=== PATIENT | male | born 1955 | race Caucasian/White ===

== ENCOUNTER 2016-07-28 15:27 | Inpatient (IN) | payer OTHER ==
--- NOTE | 2016-07-28 16:02 | EDPHY ---
H & P Time Seen by Provider: 07/28/16 15:52 HPI/ROS: Chief complaint. Chest pain, shortness of breath HPI. 61-year-old male chest pain shortness of breath for 1 week. Gradually worsening. No fall or injury. It is right-sided and worse with deep breathing. He has developed slight cough and slight fever. Symptoms are typical of his previous pneumothoraces. He has had multiple spontaneous pneumothorax with procedures for repair x2. No left-sided symptoms. ROS Constitutional. Low-grade fever Eyes. no problems with vision ENT. no sore throat, no nasal drainage Cardiovascular. Right-sided chest pain Respiratory. Shortness of breath Abdominal. no abdominal pain, no nausea/vomiting, no diarrhea . no problems urinating MS. no calf pain/swelling, no neck/back pain, no joint pain Skin. no rash Lymph. no swollen glands Neuro. no headache, no dizziness, no difficulty walking or with speech Past Medical/Surgical History: Pneumothorax Social History: Single, nonsmoker, no alcohol Smoking Status: Never smoked Physical Exam: General Appearance: Alert well-developed male mild distress vital signs show heart rate of 101. O2 saturation 94% on Eyes: Pupils equal and round no pallor or injection. ENT, Mouth: Mucous membranes are moist. Respiratory: Decreased breath sounds on the right Cardiovascular: Regular rate and rhythm. Gastrointestinal: Abdomen is soft and nontender, no masses, bowel sounds normal. Neurological: Awake and alert, sensory and motor exams grossly normal. Skin: Warm and dry, no rashes. Musculoskeletal: Neck is supple nontender. Extremities symmetrical, full range of motion. Psychiatric: Patient is oriented X 3, there is no agitation. Constitutional: Initial Vital Signs Temperature (C) 36.7 C 07/28/16 15:38 Heart Rate 101 H 07/28/16 15:38 Respiratory Rate 20 07/28/16 15:38 Blood Pressure 138/88 H 07/28/16 15:38 O2 Sat (%) 94 07/28/16 15:38 O2 Delivery Mode Room Air Allergies/Adverse Reactions: codeine [Codeine] Allergy (Intermediate, Verified 07/28/16 15:37) Abdominal Cramping amoxicillin [Amoxicillin] Allergy (Mild, Verified 07/28/16 15:37) Rash Home Medications: Medication Instructions Recorded NK [No Known Home Meds] 07/28/16 Medical Decision Making - Diagnostics EKG Interpretation: EKG interpreted by me shows normal sinus rhythm with normal interval and axis. QRS is normal there is no significant ST elevation or depression. The rate is 90. No change from previous EKG August 2010 Imaging: Chest x-ray from this morning is reviewed by me and shows a moderate to large right-sided pneumothorax Chest CT confirms the pneumothorax but also shows 2 new pulmonary nodules in the left lung ED Course/Re-evaluation: I have consulted and discussed case with Dr. Hayes who comes to see the patient in the emergency department. On re-evaluation patient remained stable. The patient and I discussed treatment plan including need for admission further evaluation. Plan is surgery. The patient expresses understanding and agreement Differential Diagnosis: Recurrent pneumothorax and new pulmonary nodules in the other lung. This could certainly be suspicious for metastatic cancer as the patient has been worked up for prostate cancer previously - Data Points Laboratory Results: Laboratory Results 07/28/16 15:50 07/28/16 15:50 07/28/16 07/28/16 07/28/16 15:50 15:50 15:50 WBC 6.69 10^3/uL 10^3/uL (3.80-9.50) RBC 5.15 10^6/uL 10^6/uL (4.40-6.38) Hgb 16.5 g/dL g/dL (13.7-17.5) Hct 49.0 % % (40.0-51.0) MCV 95.1 fL fL (81.5-99.8) MCH 32.0 pg pg (27.9-34.1) MCHC 33.7 g/dL g/dL (32.4-36.7) RDW 13.5 % % (11.5-15.2) Plt Count 305 10^3/uL 10^3/uL (150-400) MPV 9.7 fL fL (8.7-11.7) Neut % (Auto) 71.4 % % (39.3-74.2) Lymph % (Auto) 19.3 % % (15.0-45.0) Stanley % (Auto) 8.8 % % (4.5-13.0) Eos % (Auto) 0.0 % L % (0.6-7.6) Baso % (Auto) 0.4 % % (0.3-1.7) Nucleat RBC Rel Count 0.0 % % (0.0-0.2) Absolute Neuts (auto) 4.77 10^3/uL 10^3/uL (1.70-6.50) Absolute Lymphs (auto) 1.29 10^3/uL 10^3/uL (1.00-3.00) Absolute Monos (auto) 0.59 10^3/uL 10^3/uL (0.30-0.80) Absolute Eos (auto) 0.00 10^3/uL L 10^3/uL (0.03-0.40) Absolute Basos (auto) 0.03 10^3/uL 10^3/uL (0.02-0.10) Absolute Nucleated RBC 0.00 10^3/uL 10^3/uL (0-0.01) Immature Gran % 0.1 % % (0.0-1.1) Immature Gran # 0.01 10^3/uL 10^3/uL (0.00-0.10) Sodium 140 mEq/L mEq/L (134-144) Potassium 4.1 mEq/L mEq/L (3.5-5.2) Chloride 102 mEq/L mEq/L (97-110) Carbon Dioxide 27 mEq/l mEq/l (22-31) Anion Gap 11 mEq/L mEq/L (8-16) BUN 15 mg/dL mg/dL (7-23) Creatinine 0.9 mg/dL mg/dL (0.7-1.3) Estimated GFR > 60 Glucose 108 mg/dL H mg/dL (70-100) Calcium 10.0 mg/dL mg/dL (8.5-10.4) Total Bilirubin 0.6 mg/dL mg/dL (0.1-1.4) AST 29 IU/L IU/L (17-59) ALT 45 IU/L IU/L (21-72) Alkaline Phosphatase 76 IU/L IU/L (38-126) Total Protein 8.0 g/dL g/dL (6.3-8.2) Albumin 4.9 g/dL g/dL (3.5-5.0) Free PSA Pending Total PSA Pending Departure - Departure Disposition: [facility] Inpatient Acute Clinical Impression: Pneumothorax Qualifiers: Pneumothorax type: spontaneous, primary Qualified Code(s): J93.11 - Primary spontaneous pneumothorax Condition: Fair
--- NOTE | 2016-07-28 16:03 | CPEKG ---
Heart Rate: 90 RR Interval: 667 P-R Interval: 168 QRSD Interval: 78 QT Interval: 352 QTC Interval: 431 P Grandy: 92 QRS Grandy: 70 T Wave Grandy: 77 EKG Severity - NORMAL ECG - EKG Impression: SINUS RHYTHM Electronically Signed By: Mani Lr 29-Jul-2016 00:01:50
--- NOTE | 2016-07-28 18:36 | PDCONSULT ---
Mfts Note: 61 y/o male with 6-7 day history of malaise, fatigue and subsequent right chest pain, cough He is s/p VATS 2010 for apical blebectomy/mechanical pleurodesis for recurrent pneumothorax and now has a 60% right basilar pneumothorax. PMH: prostatectomy 2012 prostate CA VATS pleurodesis 2010 recurrent pneumo non-smoker/no exposure SH: lives alone/sister in [place] ROS: no hemoptysis/trauma PE: thin gentleman in NAD trachea midline/no adenopathy lungs: diminished breath sounds right abd: soft/+BS, non-tender, no mass or HSM CT: reviewed with Dr. Marshall: LLL/ALEJANDRO pulmonary nodules, new since 2010 right pneumothorax without obvious mass, bleb or pleural thickening lab pending Imp: 1. recurrent right pneumothorax 2. LLL/ALEJANDRO pulmonary nodules, new 3. Hx prostate CA 2011 Rec: We discussed options and I recommended a repeat VATS pleurodesis/talc and subsequent non-invasive work up for his pulmonary nodules He is in agreement and I will schedule the surgery for this evening. Kam Hayes MD, FACS
[2016-07-28 18:50] LABS: % IMMATURE GRANULYOCYTES 0.1 % (0.0-1.1); ABSOLUTE IMMATURE GRANULOCYTES 0.01 10^3/uL (0.00-0.10); ADD DIFF? NO; ADD MORPH? NO; ADD SCAN? NO; ATYPICAL LYMPHOCYTE FLAG 0 (0-99); FRAGMENT RBC FLAG 0 (0-99); HEMOGLOBIN 16.5 g/dL (13.7-17.5); LEFT SHIFT FLG 0 (0-99); LIPEMIA HEMOLYSIS FLAG 80 (0-99); MEAN CELL HEMOGLOBIN CONCENTR. 33.7 g/dL (32.4-36.7); MEAN CELL VOLUME 95.1 fL (81.5-99.8); MEAN PLATELET VOLUME 9.7 fL (8.7-11.7); PLATELET CLUMPS FLAG 20 (0-99); PLATELET COUNT 305 10^3/uL (150-400); RED BLOOD CELL COUNT 5.15 10^6/uL (4.40-6.38); RED CELL DISTRIBUTION WIDTH 13.5 % (11.5-15.2)
[2016-07-28 18:52] LABS: ALANINE AMINOTRANSFERASE 45 IU/L (21-72); ALBUMIN 4.9 g/dL (3.5-5.0); ALKALINE PHOSPHATASE 76 IU/L (38-126); ANION GAP 11 mEq/L (8-16); ASPARTATE AMINOTRANSFERASE 29 IU/L (17-59); BILIRUBIN,TOTAL 0.6 mg/dL (0.1-1.4); CARBON DIOXIDE 27 mEq/l (22-31); CHLORIDE 102 mEq/L (97-110); CREATININE 0.9 mg/dL (0.7-1.3); GLOMERULAR FILTRATION RATE > 60; GLUCOSE 108 mg/dL (70-100); POTASSIUM 4.1 mEq/L (3.5-5.2); SODIUM 140 mEq/L (134-144)
[2016-07-28] MEDS ORDERED: ROCURONIUM 50 MG/5 ML VIAL ONE (21:27)
[2016-07-28] MEDS ORDERED: PROPOFOL 200 MG/20 ML VIAL ONE (21:27)
[2016-07-28] MEDS ORDERED: HYDROmorphONE/DILAUDID 2 MG/ML INJ ONE (21:27)
[2016-07-28] MEDS ORDERED: LIDOCAINE 2% 5 ML SDV ONE (21:29)
[2016-07-28] MEDS ORDERED: epHEDrine SULFATE 10 MG/ML SYR ONE (22:00)
[2016-07-28] MEDS ORDERED: PHENYLEPHRINE HCL 100 MCG/ML SYR ONE (22:00)
[2016-07-28] MEDS ORDERED: DEXAMETHASONE 4 MG/ML VIAL ONE ×2 (22:01)
[2016-07-28] MEDS ORDERED: ceFAZolin 1 GM VIAL ONE ×2 (22:01)
[2016-07-28] MEDS ORDERED: ONDANSETRON 4 MG/2 ML VIAL ONE (22:01)
[2016-07-28] MEDS ORDERED: BUPIVACAINE/EPI 0.25% 30 ML SDV ONE (22:06)
[2016-07-28] MEDS ORDERED: VASOPRESSIN 20 UNIT/ML VIAL ONE (22:29)
[2016-07-28] MEDS ORDERED: HYDROmorphONE/DILAUDID 1 MG/ML SYR ONE (23:19)
[2016-07-28] MEDS ORDERED: ONDANSETRON 4 MG/2 ML VIAL IVP PRN (23:21)
[2016-07-28] MEDS ORDERED: fentaNYL 100 MCG/2 ML INJ ONE (23:24)
[2016-07-28] MEDS ORDERED: KETOROLAC 30 MG/1 ML SDV IVP ONE (23:27)
[2016-07-28] MEDS ORDERED: HYDROmorphONE/DILAUDID 1 MG/ML SYR IVP PRN (23:28)
[2016-07-28] MEDS ORDERED: NS 1,000 ML IV SCH (23:30)
--- NOTE | 2016-07-28 23:33 | POSTOPPROG ---
Post Op Note Date of Operation: 07/28/16 Surgeon: Jaylen Hayes (, FACS) Anesthesiologist: Victor Manuel Barlow DO Anesthesia: GET(General Endotracheal) Pre-op Diagnosis: recurrent right pneumothorax Post-op Diagnosis: same Procedure: VATS talc pleurodesis/biopsy parietal pleura and RLL lung Inf/Abcess present in the surg proc area at time of surgery?: No Drains: Other (#[address]) Specimen(s): parietal pleura/subpleural nodule RLL anterobasilar segment
[2016-07-28] MEDS ORDERED: KETOROLAC 30 MG/1 ML SDV ONE (23:38)
[2016-07-29] MEDS: OXYCODONE/APAP 5/325 TAB PO PRN ×4 (00:53→20:24)
--- NOTE | 2016-07-29 04:33 | GOP ---
[f rep st] OPERATIVE REPORT DATE OF OPERATION: SURGEON: Jaylen Hayes MD, FACS ANESTHESIA: General endotracheal, Victor Manuel Barlow DO. PREOPERATIVE DIAGNOSIS: 1. Recurrent right pneumothorax. 2. History of prostate cancer. 3. New left pulmonary nodules. POSTOPERATIVE DIAGNOSIS: 1. Recurrent right pneumothorax. 2. History of prostate cancer. 3. New left pulmonary nodules. PROCEDURE PERFORMED: 1. Right thoracoscopic talc pleurodesis (VATS). 2. Thoracoscopic pleural biopsy. 3. Thoracoscopic wedge biopsy, right lower lobe. FINDINGS: A 60% to 70% pneumothorax with tethering of the apex from prior mechanical pleurodesis. No evidence of tension at time of surgery. A small, inflammatory-appearing, pleural nodule from the right posterior chest, excised and submitted for permanent section. A small, subpleural, pulmonary nodule, excised from the anterior basilar segment of the right lower lobe and submitted for permanent section. No gross evidence of malignancy. ESTIMATED BLOOD LOSS: 10 mL. INDICATIONS: Patient is a 61-year-old male, who presented with a several-day history of worsening shortness of breath and chest pain, and was found to have a recurrent pneumothorax on chest x-ray in the emergency department by Dr. Lr. Surgical consultation was requested. CT scan was performed, which in addition to confirming the anatomic nature of the pneumothorax, revealed a spiculated pulmonary nodule in the left lower lobe medial basilar segment, as well as an upper lobe smaller pulmonary nodule, not present on prior CT from 2010. The patient had subsequently been treated for prostate cancer, and last year had been noted to have a rising PSA, with a bone scan that showed some equivocal findings in the axial skeleton. Patient and I discussed the options of management including primary chest tube placement versus proceeding with definitive VATS with talc pleurodesis, and ultimately he decided to proceed with the definitive procedure. DESCRIPTION OF PROCEDURE: After informed consent was obtained, the patient was brought to the operating room and placed under general anesthesia via double- lumen endotracheal tube. The patient was then carefully positioned in left lateral decubitus. The right chest was prepped and draped in the usual fashion. Before proceeding, a time-out and identification of the patient was performed. He received 2 g of Ancef as surgical prophylaxis. The chest was entered in the 6th intercostal space along the anterior axillary line, after infiltrating the skin, subcutaneous tissues, and intercostal muscle with 0.25% Marcaine with epinephrine. A 5 mm port was established and a 30- degree scope was introduced. The pleural space was visualized. The patient had mostly collapsed his lower lobe and middle lobe, but his upper lobe remained tethered from the prior mechanical pleurodesis. Some grayish-brown nodular material was found to be implanted in the parietal pleura posteriorly, and he had anthracosis of the pleura, but no particularly worrisome nodules. There was a small subpleural nodule along the anterior basilar segment of the lower lobe. Before proceeding with the talc pleurodesis, the lung was inflated to ensure that there was no entrapment or bronchial obstruction. Dr. Barlow was unable to inflate the lung with positive pressure ventilation, but it inflated nicely with suction on the chest cavity. Two additional ports were placed, 1 in the 8th intercostal space along the anterior axillary line, and then 1 in the 7th intercostal space along the posterior axillary line. This allowed introduction of atraumatic instruments, and the pleura was tented, and a small disc of pleura along with the nodular area were excised, and submitted in formalin for permanent section. The subpleural nodule in the anterior basilar segment of the lower lobe was gently lifted with an atraumatic grasper, and a single firing of the LIBAN 35 stapler, white cartridge, was applied across the base, and this was retrieved and submitted for permanent section. Subsequently , 2 canisters of aerosolized talc were introduced into the pleural space through 1 of the ports, and the entire visceral and parietal pleural surfaces were covered. Total of 54 g of talc was delivered. The 24-Prydeinig chest tube was placed through the anterior port site, which had been enlarged slightly to accommodate the stapler. This was secured to the skin with 0 silk suture, and was positioned along the posterior aspect of the chest cavity, directed apically. The lung was reinflated with suction, and positive pressure ventilation was reinstituted. The remaining 2 incisions were closed with 4-0 Monocryl suture. Sterile dressings were applied. Chest tube was secured to a Pleur-evac and placed on suction, at which point, additional air was evacuated through the Pleur-evac and ultimately, no persistent air leak continued after the lung was fully inflated. The patient was returned to the supine position, extubated, and brought to the recovery room in satisfactory condition. Needle sponge, and instrument counts were correct. COMPLICATIONS: None. /[id number]/MODL MTDD
--- NOTE | 2016-07-29 06:39 | SOAPPROG ---
Downtime Inpatient MD Late Entry SOAP Note: Zoin is resting comfortably with moderate discomfort from his chest tube. He is mildly nauseated. His CT output is minimal and there is no air leak on 10cm suction. Lungs are clear to auscultation PSA and morning CXR are pending Imp: stable post op' Rec: continue CT drainage today/consider CT removal tomorrow if lung remains inflated check PSA supportive care Kam Hayes MD, FACS
[2016-07-29] MEDS: ENOXAPARIN 40 MG/0.4 ML SYR SC SCH (08:15)
[2016-07-29] MEDS: KETOROLAC 15 MG/1 ML SDV IVP PRN (20:24)
[2016-07-30] MEDS: OXYCODONE/APAP 5/325 TAB PO PRN ×4 (06:08→21:11)
[2016-07-30] MEDS: KETOROLAC 15 MG/1 ML SDV IVP PRN ×2 (06:10→21:07)
--- NOTE | 2016-07-30 07:45 | SOAPPROG ---
SOAP Progress Note Assessment/Plan: Assessment:s/p right VATS talc pleurodesis for recurrent pneumothorax prostate CA-PSA remains pending left pulmonary nodules Plan: CXR-possible CT removal today check PSA Oncology consult at some point 07/30/16 07:43 Subjective: resting comfortably with Percocet/IV Dilaudid Objective: Vital Signs Temp Pulse Resp BP Pulse Ox 36.4 C 76 18 116/67 91 L 07/29/16 22:30 07/29/16 22:30 07/29/16 22:30 07/29/16 22:30 07/29/16 22:30 07/29/16 07/30/16 07/31/16 05:59 05:59 05:59 Intake Total 1050 2600 Output Total 769 650 10 Balance 281 1950 -10 - Pending Discharge Pending Discharge Within 24 Hours: Yes Pending Discharge Date: 07/31/16 Pending Discharge Time: 11:00 Physical Exam - Physical Exam General Appearance: no apparent distress Respiratory: decreased breath sounds, other (CT without air leak) Cardiac/Chest: regular rate, rhythm ICD10 Worksheet Patient Problems: Problems Problem Status Onset Pneumothorax Acute
[2016-07-30] MEDS: ENOXAPARIN 40 MG/0.4 ML SYR SC SCH (08:24)
[2016-07-30 14:16] LABS: FREE PSA 2.3 ng/mL; PSA RATIO F/T See Comments ratio; TOTAL PSA 32.7 ng/mL (<=4.5)
--- NOTE | 2016-07-30 15:20 | SOAPPROG ---
Downtime Inpatient MD Late Entry SOAP Note: Repeat PSA [address] removed without incident We discussed the significance of the rising PSA and I recommended Oncology Consultation with Dr. Bryn Glover as an outpatient repeat CXR pending/anticipate discharge tomorrow S MD Abigail, FACS
--- NOTE | 2016-07-30 18:44 | POSTOPPROG ---
Post Op Note Date of Operation: 07/30/16 Surgeon: Jaylen Hayes (, FACS) Anesthesia: Local (Specify) Pre-op Diagnosis: recurrent right pneumothorax Post-op Diagnosis: same Procedure: right closed tube thoracostomy Inf/Abcess present in the surg proc area at time of surgery?: No EBL: Minimal Drains: Other (#28 [place]. [place])
[2016-07-31] MEDS: KETOROLAC 15 MG/1 ML SDV IVP PRN ×3 (04:17→21:07)
[2016-07-31] MEDS: OXYCODONE/APAP 5/325 TAB PO PRN ×3 (04:17→21:08)
[2016-07-31] MEDS: ENOXAPARIN 40 MG/0.4 ML SYR SC SCH (08:48)
--- NOTE | 2016-07-31 10:49 | SOAPPROG ---
SOAP Progress Note Assessment/Plan: Assessment:s/p right VATS talc pleurodesis for recurrent pneumothorax-CT replaced after recurrent pneumo yesterday prostate CA-PSA remains pending left pulmonary nodules Plan:CT to water seal today/repeat CXR consider conversion to Heimlich valve and leave CT in for 10-14 days. 07/30/16 07:43 07/31/16 10:47 Subjective: Awake and alert/denies significant pain Objective: Vital Signs Temp Pulse Resp BP Pulse Ox 36.4 C 80 14 111/85 H 91 L 07/31/16 07:50 07/31/16 07:50 07/31/16 07:50 07/31/16 07:50 07/31/16 07:50 07/30/16 07/31/16 08/01/16 05:59 05:59 05:59 Intake Total 2600 550 Output Total 650 1610 10 [facility] 1950 -1060 -10 - Pending Discharge Pending Discharge Within 48 Hours: Yes Pending Discharge Date: 08/02/16 Pending Discharge Time: 11:00 Physical Exam - Physical Exam General Appearance: no apparent distress Respiratory: lungs clear, decreased breath sounds, other (CT without air leak on suction-placed to water seal) Cardiac/Chest: regular rate, rhythm ICD10 Worksheet Patient Problems: Problems Problem Status Onset Pneumothorax Acute
[2016-07-31] MEDS ORDERED: MAGNESIUM HYDROXIDE 30 ML UDCUP PO PRN ×2 (11:18→18:23)
[2016-07-31] MEDS ORDERED: BISACODYL 10 MG SUPP PR PRN (18:23)
[2016-07-31] MEDS ORDERED: POLYETHYLENE GLYCOL 3350 17 GM PKT PO PRN (18:23)
[2016-07-31] MEDS ORDERED: LACTULOSE 20 GM/30 ML UDCUP PO PRN (18:23)
[2016-07-31] MEDS: SENNOSIDES/DOCUSATE SODIUM TAB PO SCH (21:08)
[2016-08-01] MEDS: OXYCODONE/APAP 5/325 TAB PO PRN ×3 (07:13→22:07)
[2016-08-01] MEDS: KETOROLAC 15 MG/1 ML SDV IVP PRN (07:17)
--- NOTE | 2016-08-01 08:17 | PDDCSUM ---
Discharge Summary Discharge Summary: DOA 07/28/16 DOD: 08/01 DC Diagnosis: 1. recurrent right pneumothorax 2. hx. prostate CA s/p prostatectomy 2011 3. new Left pulmonary nodules Procedures: 07/28 Right VATS pleurodesis/lung biopsy/pleural biopsy Course: Zion presented with a 60-70% right pneumothorax s/p mechanical pleurodesis in 2010. A pre-op CT scan showed two new Left lung nodules/but no identifiable blebs in the right lung. At surgery the right apex was adherent to the parietal pleura. A biopsy of an irregular area of pleura and a small RLL subpleural nodule was performed followed by talc pleurodesis. He did well post op. POD #[address] was removed after 36 hours of expansion on water seal. Unfortunately, his post removal CXR showed a recurrent pneumothorax. A #28Fr. CT was replaced and the lung re-expanded. The lung remained inflated on water seal on the day of discharge and he was converted to a Heimlich valve. CXR showed good lung expansion. He will follow up in my office tomorrow and I anticipate removing the CT in 7- 10 days. His PSA was 23. I reviewed his CT images with him so he could see the pulmonary nodules. LFT's/alk phos were normal. I discussed his case with Dr. Bryn Glover who recommended a PET-CT when he was more fully recovered. DC meds: Percocet #30 Senokot-S #30 S MD Abigail, FACS
[2016-08-01] MEDS: ENOXAPARIN 40 MG/0.4 ML SYR SC SCH (08:19)
[2016-08-01] MEDS: SENNOSIDES/DOCUSATE SODIUM TAB PO SCH ×2 (08:20→20:08)
--- NOTE | 2016-08-01 13:12 | SOAPPROG ---
Downtime Inpatient Late Entry SOAP Note: I received a call from Zion's nurse Vanessa who reported the glove used to drain the CT via the Heimlich valve has filled up with air on several occasions. I have cancelled Zion's discharge and will continue observation in the hospital/he may require a return to pleuravac suction. Kam Hayes MD, FACS
[2016-08-02] MEDS: OXYCODONE/APAP 5/325 TAB PO PRN ×5 (04:50→20:50)
--- NOTE | 2016-08-02 06:38 | SOAPPROG ---
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 [place] 07/30/16 07:43 07/31/16 10:47 08/02/16 06:34 08/02/16 06:37 Subjective: resting comfortable/intermitant air leak as evidenced by air inflation of draining glove attached to Heimlich valve Objective: Vital Signs Temp Pulse Resp BP Pulse Ox 36.4 C 93 16 129/74 H 94 08/01/16 23:45 08/01/16 23:45 08/01/16 23:45 08/01/16 23:45 08/01/16 23:45 08/01/16 08/02/16 08/03/16 05:59 05:59 05:59 Intake Total 1800 2000 Output Total 165 400 Balance 1635 1600 Physical Exam - Physical Exam General Appearance: no apparent distress Respiratory: lungs clear, decreased breath sounds, other (CT clamped and Heimlich valve removed/placed on 15 cm suction via pleuravac with brief air leak that sealed) Cardiac/Chest: regular rate, rhythm ICD10 Worksheet Patient Problems: Problems Problem Status Onset Pneumothorax Acute
[2016-08-02] MEDS: SENNOSIDES/DOCUSATE SODIUM TAB PO SCH ×2 (09:08→23:10)
[2016-08-02] MEDS: ENOXAPARIN 40 MG/0.4 ML SYR SC SCH (09:08)
[2016-08-03] MEDS: OXYCODONE/APAP 5/325 TAB PO PRN ×5 (01:47→21:00)
[2016-08-03] MEDS: ENOXAPARIN 40 MG/0.4 ML SYR SC SCH (08:47)
[2016-08-03] MEDS: SENNOSIDES/DOCUSATE SODIUM TAB PO SCH ×2 (08:48→22:51)
--- NOTE | 2016-08-03 08:51 | SOAPPROG ---
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 Plan:CT to pleuravac suction will require hospitalization additional 3-4 days/could potential return home on water seal pleuravac if appropriate home care services available-patient remains motivated to do so I spent 40 minutes with him discussing his diagnosis of metastatic prostate CA and his persistant bronchopleural fistula Kam Hayes MD, FACS 07/30/16 07:43 07/31/16 10:47 08/02/16 06:34 08/02/16 06:37 08/03/16 08:48 Subjective: resting comfortably/noticed air leak intermitantly yesterday Objective: Vital Signs Temp Pulse Resp BP Pulse Ox 36.4 C 80 18 96/71 L 95 08/03/16 07:25 08/03/16 07:25 08/03/16 07:25 08/03/16 07:25 08/03/16 07:25 08/02/16 08/03/16 08/04/16 05:59 05:59 05:59 Intake Total 2000 950 Output Total 400 20 Balance 1600 930 - Time Spent With Patient Time Spent With Patient: 40 minutes Physical Exam - Physical Exam General Appearance: alert, no apparent distress Respiratory: lungs clear, decreased breath sounds, other (small intermitant air leak noticed this morning/minimal serous drainage/CT dressing intact) ICD10 Worksheet Patient Problems: Problems Problem Status Onset Pneumothorax Acute
[2016-08-04] MEDS: OXYCODONE/APAP 5/325 TAB PO PRN ×3 (04:59→15:30)
[2016-08-04] MEDS: ENOXAPARIN 40 MG/0.4 ML SYR SC SCH (09:15)
[2016-08-04] MEDS: SENNOSIDES/DOCUSATE SODIUM TAB PO SCH ×2 (09:16→20:30)
--- NOTE | 2016-08-04 12:38 | SOAPPROG ---
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 Plan:continue CT to pleuravac suction until air leak resolved will require hospitalization additional 3-4 days/could potential return home on water seal pleuravac if appropriate home care services available-patient remains motivated to do so Kam Hayes MD, FACS 07/30/16 07:43 07/31/16 10:47 08/02/16 06:34 08/02/16 06:37 08/03/16 08:48 08/04/16 12:36 Subjective: resting comfortably/taking 4 Percocet per day for pain control Objective: Vital Signs Temp Pulse Resp BP Pulse Ox 36.6 C 88 16 98/72 L 92 08/03/16 22:25 08/04/16 08:00 08/04/16 08:00 08/04/16 08:00 08/04/16 08:00 08/03/16 08/04/16 08/05/16 05:59 05:59 05:59 Intake Total 950 550 Output Total 20 71 Balance 930 479 Physical Exam - Physical Exam General Appearance: alert, no apparent distress Respiratory: normal breath sounds, decreased breath sounds, other (CT with intermitant air leak on 10 cm suction/minimal drainage at CT exit site) Cardiac/Chest: regular rate, rhythm ICD10 Worksheet Patient Problems: Problems Problem Status Onset Pneumothorax Acute
--- NOTE | 2016-08-05 06:14 | SOAPPROG ---
Downtime Inpatient MD Late Entry SOAP Note: Zion is resting comfortably/he still has an intermitant air leak on 10 cm suction there is minimal drainage/AFVSS Lungs Clear to auscultation Imp: persistant air leak Rec: continue CT suction
[2016-08-05] MEDS: ENOXAPARIN 40 MG/0.4 ML SYR SC SCH (08:12)
[2016-08-05] MEDS: SENNOSIDES/DOCUSATE SODIUM TAB PO SCH ×2 (10:34→21:29)
[2016-08-06] MEDS: ENOXAPARIN 40 MG/0.4 ML SYR SC SCH (09:11)
[2016-08-06] MEDS: SENNOSIDES/DOCUSATE SODIUM TAB PO SCH ×2 (09:11→20:18)
--- NOTE | 2016-08-06 18:17 | SOAPPROG ---
Downtime Inpatient MD Late Entry SOAP Note: Zion is resting comfortably/his chest tube continues to have an intermitant air leak on 10 cm suction lungs are clear/CT dressing intact We discussed a trial of H2O seal and possible discharge with pleuravac Kam Hayes MD, FACS
[2016-08-07] MEDS: ENOXAPARIN 40 MG/0.4 ML SYR SC SCH (08:31)
[2016-08-07] MEDS: SENNOSIDES/DOCUSATE SODIUM TAB PO SCH ×2 (08:46→22:06)
--- NOTE | 2016-08-07 10:50 | SOAPPROG ---
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 Plan:CT to H2O seal/recheck CXR could potentially return home on water seal pleuravac w/out [facility] services S MD Abigail, FACS 07/30/16 07:43 07/31/16 10:47 08/02/16 06:34 08/02/16 06:37 08/03/16 08:48 08/04/16 12:36 08/07/16 10:48 Subjective: Resting comfortably Objective: Vital Signs Temp Pulse Resp BP Pulse Ox 37.1 C 87 18 122/79 H 97 08/07/16 08:00 08/07/16 08:00 08/07/16 08:00 08/07/16 08:00 08/07/16 08:00 08/06/16 08/07/16 08/08/16 05:59 05:59 05:59 Intake Total 475 550 Output Total 30 60 Balance 445 490 Physical Exam - Physical Exam Cardiac/Chest: other (dressing intact/intermitant air leak persists on 10 cm suction) ICD10 Worksheet Patient Problems: Problems Problem Status Onset Pneumothorax Acute
--- NOTE | 2016-08-07 17:13 | SOAPPROG ---
Downtime Inpatient MD Late Entry SOAP Note: CXR reviewed 5-10% pneumothorax/will leave on water seal and recheck in AM absence of suction could give the leak to seal Discussed with patient's nurse, Ivy Hayes MD, FACS
--- NOTE | 2016-08-08 08:50 | SOAPPROG ---
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 services S MD Abigail, FACS 07/30/16 07:43 07/31/16 10:47 08/02/16 06:34 08/02/16 06:37 08/03/16 08:48 08/04/16 12:36 08/07/16 10:48 08/08/16 08:48 Subjective: resting comfortably O2 sat 97% RA Objective: Vital Signs Temp Pulse Resp BP Pulse Ox 36.5 C 78 16 104/70 95 08/08/16 08:00 08/08/16 08:00 08/08/16 08:00 08/08/16 08:00 08/08/16 08:00 08/07/16 08/08/16 08/09/16 05:59 05:59 05:59 Intake Total 550 Output Total 60 Balance 490 - Pending Discharge Pending Discharge Within 24 Hours: Yes Pending Discharge Date: 08/09/16 Pending Discharge Time: 11:00 Physical Exam - Physical Exam General Appearance: no apparent distress Respiratory: normal breath sounds, other (CT with small intermitant air leak/ breath sounds relatively equal) ICD10 Worksheet Patient Problems: Problems Problem Status Onset Pneumothorax Acute
[2016-08-08] MEDS: SENNOSIDES/DOCUSATE SODIUM TAB PO SCH ×2 (15:14→21:43)
[2016-08-08] MEDS: ENOXAPARIN 40 MG/0.4 ML SYR SC SCH (15:25)
[2016-08-09] MEDS: ENOXAPARIN 40 MG/0.4 ML SYR SC SCH (11:06)
[2016-08-09] MEDS: SENNOSIDES/DOCUSATE SODIUM TAB PO SCH ×2 (11:08→21:00)
--- NOTE | 2016-08-09 12:44 | SOAPPROG ---
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 Plan:CT to H2O seal x 24 hours now/recheck CXR could potentially return home on water seal pleuravac w/out [facility] services S MD Abigail, FACS 07/30/16 07:43 07/31/16 10:47 08/02/16 06:34 08/02/16 06:37 08/03/16 08:48 08/04/16 12:36 08/07/16 10:48 08/08/16 08:48 Subjective: resting comfortably/CT with minimal residual air leak-intermitant on suction Objective: Vital Signs Temp Pulse Resp BP Pulse Ox 36.7 C 94 12 109/68 96 08/09/16 08:00 08/09/16 08:00 08/09/16 08:00 08/09/16 08:00 08/09/16 08:00 08/08/16 08/09/16 08/10/16 05:59 05:59 05:59 Intake Total 400 Output Total 30 Balance 370 Physical Exam - Physical Exam General Appearance: no apparent distress Respiratory: other (CT minimal residual air leak) Cardiac/Chest: regular rate, rhythm ICD10 Worksheet Patient Problems: Problems Problem Status Onset Pneumothorax Acute
[2016-08-09 15:09] VITALS: RESP 16
[2016-08-10 08:28] VITALS: BP 97/68; PULSE 79; TEMP 97.8; O2SAT 93
--- NOTE | 2016-08-10 08:46 | PDDCSUM ---
Discharge Summary Discharge Summary: DOA 07/28/16 DOD 08/10/16 DC Dx: 1. recurrent right pneumothorax 2. metstatic prostate CA Surgery: 07/28 VATS talc pleuodesis/lung and pleural biopsy Course: see chart for details. After surgery Zion did well intially and his CT was removed at 48 hours. His lung recollapsed and the CT was reinsterted at bedside. Since then he has had an intermitant air leak managed with suction and subsequently H20 seal. He was discharge home with a pleuravac for outpatient removal after his air leak seals. He will return for CXR 08/12 and follow up in my office next week. He was referred to Dr. Das for oncology consultation. DC Meds: Percocet/Senokot-S/Ibuprofen prn S MD Abigail, FACS
[2016-08-10] MEDS: ENOXAPARIN 40 MG/0.4 ML SYR SC SCH (10:08)
[2016-08-10] MEDS: SENNOSIDES/DOCUSATE SODIUM TAB PO SCH (10:09)
== END 2016-08-10 12:01 | disposition home or self-care (01) | DRG 164 ==
LOC: F3N 07-29 00:30 → F3E 08-02 14:32
PROVIDERS: ADMIT Surgery; ATTEND Surgery
PROC: 0BJQ4ZZ Inspection of Pleura, Percutaneous Endoscopic Approach (ICD-10-PCS; principal; 2016-07-28 19:30)
PROC: 0BBF0ZX Excision of Right Lower Lung Lobe, Open Approach, Diagnostic (ICD-10-PCS; principal; 2016-07-28 19:30)
PROC: 0BBN0ZX Excision of Right Pleura, Open Approach, Diagnostic (ICD-10-PCS; principal; 2016-07-28 19:30)
PROC: 3E0L3GC Introduction of Other Therapeutic Substance into Pleural Cavity, Percutaneous Approach (ICD-10-PCS; principal; 2016-07-28 19:30)
PROC: 0W9B30Z Drainage of Left Pleural Cavity with Drainage Device, Percutaneous Approach (ICD-10-PCS; 2016-07-30)
DX: J93.83 Other pneumothorax (principal); C78.01 Secondary malignant neoplasm of right lung; Z85.46 Personal history of malignant neoplasm of prostate
CPT/HCPCS: 84154-90; J0690; J1100; J1170; J1650; J1885; J2370; J2405; J2704; J3010

== ENCOUNTER → 2016-07-28 | Outpatient (CLI) | payer OTHER | LOC: BMCIMAGING 12:38 | PROVIDERS: ATTEND Internal Medicine | DX: J93.9 Pneumothorax, unspecified (principal); J98.19 Other pulmonary collapse; J98.4 Other disorders of lung ==

== ENCOUNTER → 2016-08-12 | Outpatient (CLI) | payer OTHER | LOC: FIMAGING 08:56 | PROVIDERS: ATTEND Surgery | DX: J93.9 Pneumothorax, unspecified (principal); Z09 Encounter for follow-up examination after completed treatment for conditions other than malignant neoplasm ==

== ENCOUNTER → 2016-08-26 | Outpatient (CLI) | payer OTHER | LOC: FIMAGING 08:38 | PROVIDERS: ATTEND Internal Medicine Hematology & Oncology | DX: Z12.89 Encounter for screening for malignant neoplasm of other sites (principal); C61 Malignant neoplasm of prostate | CPT/HCPCS: 78306; A9503 ==